=== PATIENT | female | born 1985 | race Caucasian/White ===

== ENCOUNTER 2018-02-09 20:29 | Inpatient (IN) | payer OTHER ==
[~2018-02-09] VITALS: Ht 160 cm; Wt 60.0 kg
[2018-02-09] MEDS ORDERED: OXYTOCIN 30U/ 0.9% NaCL 500ML 500 ML ONE ×2 (20:56→23:36)
[2018-02-09] MEDS ORDERED: NEWBORN KIT ONE ×2 (20:56)
[2018-02-09] MEDS: LACTATED RINGERS 1,000 ML IV SCH ×2 (21:12→22:20)
[2018-02-09] MEDS ORDERED: FENTANYL PF 100 MCG/2ML ONE ×2 (21:19→22:11)
[2018-02-09] MEDS ORDERED: OXYTOCIN 30U/ 0.9% NaCL 500ML 500 ML IV ONE (21:21)
[2018-02-09] MEDS ORDERED: OXYTOCIN 30U/ 0.9% NaCL 500ML 500 ML IV PRN (21:21)
[2018-02-09] MEDS ORDERED: D5%-LACTATED RINGERS 1,000 ML IV SCH (21:21)
[2018-02-09] MEDS: FENTANYL PF 100 MCG/2ML IVPush PRN ×2 (21:25→22:19)
[2018-02-09] MEDS ORDERED: METOCLOPRAMIDE 5 MG/ML, 2ML IVPush PRN (21:30)
[2018-02-09] MEDS ORDERED: FENTANYL PF 100 MCG/2ML IV PRN (21:30)
[2018-02-09] MEDS ORDERED: TERBUTALINE 1 MG/ML, 1ML IVPush PRN (21:30)
[2018-02-09] MEDS ORDERED: SODIUM CITRATE/CITRIC ACID 30 ML UDC PO PRN (21:30)
[2018-02-09] MEDS ORDERED: ALUMINUM/MAG/SIMETHICONE 30 ML UDC PO PRN (21:30)
[2018-02-09] MEDS ORDERED: CALCIUM CARBONATE 500 MG TAB.CHEW PO PRN (21:30)
[2018-02-09 21:49] LABS: BASOPHILS # (AUTO) 0.03 x10^3/uL (0-0.1); BASOPHILS % (AUTO) 0 % (0-1); EOSINOPHILS # (AUTO) 0.12 x10^3/uL (0-0.4); EOSINOPHILS % (AUTO) 1 % (1-7); LYMPHOCYTES # (AUTO) 2.62 x10^3/uL (1-3.4); LYMPHOCYTES % (AUTO) 27 % (22-44); MD NO; MEAN CORPUSCULAR HEMOGLOBIN 33.5 pg (27.0-34.8); MEAN CORPUSCULAR HGB CONC 34.6 g/dL (32.4-35.8); MEAN CORPUSCULAR VOLUME 96.7 fL (80-100); MEAN PLATELET VOLUME 9.6 fL (7.4-10.4); MONOCYTES % (AUTO) 4 % (2-9); NEUTROPHILS # (AUTO) 6.65 x10^3/uL (1.8-6.8); NEUTROPHILS % (AUTO) 68 % (42-75); PLATELET COUNT 106 x10^3/uL (130-400); RED BLOOD COUNT 4.16 x10^6/uL (3.82-5.3); RED CELL DISTRIBUTION WIDTH 13.2 % (9.6-15.2)
[2018-02-09] MEDS ORDERED: MISOPROSTOL 200 MCG TABLET ONE (21:57)
[2018-02-09] MEDS ORDERED: LIDOCAINE/PF 1%, 30ML ONE (21:57)
[2018-02-09] MEDS ORDERED: PLEASE ENTER ALLERGIES MC SCH (22:00)
[2018-02-09] MEDS ORDERED: PLEASE ENTER HEIGHT AND WEIGHT MC SCH (22:00)
[2018-02-09] MEDS ORDERED: IBUPROFEN 600 MG TABLET ONE (23:36)
[2018-02-09] MEDS: OXYTOCIN 30U/ 0.9% NaCL 500ML 500 ML IV SCH (23:46)
[2018-02-10] MEDS ORDERED: ACETAMINOPHEN 325 MG TABLET PO PRN
[2018-02-10] MEDS ORDERED: BISACODYL 10 MG SUPP PR PRN
[2018-02-10] MEDS ORDERED: CARBOPROST TROMETHAMINE 250 MCG/ML, 1ML IM PRN
[2018-02-10] MEDS ORDERED: GLYCERIN ADULT SUPP PR PRN
[2018-02-10] MEDS ORDERED: MISOPROSTOL 200 MCG TABLET PR PRN
[2018-02-10] MEDS ORDERED: METOCLOPRAMIDE 5 MG/ML, 2ML IV PRN
[2018-02-10] MEDS ORDERED: ONDANSETRON 2MG/ML, 2ML IV PRN
[2018-02-10] MEDS ORDERED: OXYcodone/APAP 5/325MG TABLET PO PRN ×2
[2018-02-10] MEDS ORDERED: IBUPROFEN 600 MG TABLET PO PRN
[2018-02-10 01:50] VITALS: BP 112/73
[2018-02-10 06:05] VITALS: BP 105/69
[2018-02-10 08:34] LABS: MEAN PLATELET VOLUME 9.6 fL (7.4-10.4); PLATELET COUNT 104 x10^3/uL (130-400)
[2018-02-10 08:37] LABS: BASOPHILS # (AUTO) 0.07 x10^3/uL (0-0.1); BASOPHILS % (AUTO) 1 % (0-1); EOSINOPHILS # (AUTO) 0.06 x10^3/uL (0-0.4); EOSINOPHILS % (AUTO) 1 % (1-7); LYMPHOCYTES # (AUTO) 2.86 x10^3/uL (1-3.4); LYMPHOCYTES % (AUTO) 26 % (22-44); MD SCAN; MEAN CORPUSCULAR HEMOGLOBIN 33.3 pg (27.0-34.8); MEAN CORPUSCULAR HGB CONC 34.5 g/dL (32.4-35.8); MEAN CORPUSCULAR VOLUME 96.5 fL (80-100); MONOCYTES % (AUTO) 5 % (2-9); NEUTROPHILS % (AUTO) 69 % (42-75); RED BLOOD COUNT 4.09 x10^6/uL (3.82-5.3); RED CELL DISTRIBUTION WIDTH 13.1 % (9.6-15.2)
[2018-02-10] MEDS: PRENATAL VIT/IRON/FA 1 EACH TABLET PO SCH (08:55)
[2018-02-10] MEDS: DOCUSATE 100 MG CAPSULE PO PRN ×2 (08:55→22:09)
[2018-02-10] MEDS: OXYTOCIN 30U/ 0.9% NaCL 500ML 500 ML IV SCH ×2 (09:36→19:36)
[2018-02-10 12:00] VITALS: BP 111/71
[2018-02-10 16:30] VITALS: BP 105/63
[2018-02-10 19:25] VITALS: BP 109/66
[2018-02-11] MEDS: OXYTOCIN 30U/ 0.9% NaCL 500ML 500 ML IV SCH (05:36)
[2018-02-11 07:57] VITALS: BP 106/53
[2018-02-11] MEDS: PRENATAL VIT/IRON/FA 1 EACH TABLET PO SCH (09:11)
[2018-02-11] MEDS: DOCUSATE 100 MG CAPSULE PO PRN (09:11)
[2018-02-11] MEDS ORDERED: IBUP-1222 PO (09:56)
== END 2018-02-11 13:15 | disposition home or self-care (01) | DRG 775 ==
LOC: LDOP 20:29 → LDIP 20:54 → 2NW 02-10 01:03
PROVIDERS: ADMIT Obstetrics & Gynecology; ATTEND Obstetrics & Gynecology
PROC: 10E0XZZ Delivery of Products of Conception, External Approach (ICD-10-PCS; principal; 2018-02-09)
PROC: 0HQ9XZZ Repair Perineum Skin, External Approach (ICD-10-PCS; 2018-02-09)
DX: O13.4 Gestational [pregnancy-induced] hypertension without significant proteinuria, complicating childbirth (principal); O99.12 Other diseases of the blood and blood-forming organs and certain disorders involving the immune mechanism complicating childbirth; O70.0 First degree perineal laceration during delivery; O24.420 Gestational diabetes mellitus in childbirth, diet controlled; D69.59 Other secondary thrombocytopenia; Z87.891 Personal history of nicotine dependence; Z37.0 Single live birth; Z3A.39 39 weeks gestation of pregnancy; Z90.49 Acquired absence of other specified parts of digestive tract
CPT/HCPCS: 36415; J7121; 82962; 85025; 86850; 86900; G0378; J3010; J2590; J7120